=== PATIENT | female | born 1965 | race Caucasian/White ===

== ENCOUNTER → 2018-11-15 | Emergency (ER) | payer OTHER ==
[~2018-11-15] VITALS: Ht 157.5 cm; Wt 68.0 kg
[~2018-11-15] MED LIST: SOD CHLORIDE 0.9% 1,000 ML IV STA
[2018-11-15 12:43] VITALS: Ht 157.5 cm; Wt 68.0 kg
--- NOTE | 2018-11-15 12:46 | ERD ---
ER Documentation Chief Complaint Chief Complaint SYNCOPAL EPISODE @ WORK , HELD DOWN BY CO WORKER , NO FALL HPI The patient is a 53-year-old female, presenting to the ER because of acute syncopal episode at work. She did not fall because her coworkers were able to catch her, she felt much better at this time. She denies similar symptoms previously, denies tongue biting/fecal/urinary incontinence. She denies fever, chills, neck pain, chest pain, dyspnea, abdominal pain, vomiting or dysuria, diarrhea. She does not smoke nor drink, blood pressure at the scene was 94/61, she was treated with normal saline 250 mL IV by EMS with good response Past medical/surgical history: None ROS All systems reviewed and are negative except as per history of present illness. Medications Home Meds No Active Prescriptions or Reported Meds Allergies Allergies: Coded Allergies: No Known Allergy (Unverified , 11/15/18) Physical Exam Vitals Vital Signs Date Temp Pulse Resp B/P (MAP) Pulse Ox O2 O2 Flow FiO2 Time Delivery Rate 11/15/18 83 18 117/67 100 Room Air 16:00 (84) 11/15/18 85 16 128/72 100 Room Air 14:00 (90) 11/15/18 94 16 141/82 99 Room Air 13:25 (101) 11/15/18 98 16 133/87 100 Room Air 13:22 (102) 11/15/18 95 16 128/82 100 Room Air 13:20 (97) 11/15/18 98.4 78 18 124/76 99 12:43 (92) Physical Exam Const: No acute distress. Head: Atraumatic. Eyes: Normal Conjunctiva. ENT: Normal External Ears, Nose and Mouth. Neck: Full range of motion. No meningismus. Resp: Clear to auscultation bilaterally. Cardio: Regular rate and rhythm. Abd: Soft, non distended, normal bowel sounds, non tender. Skin: No petechiae or rashes. Back: No midline or flank tenderness. Ext: No cyanosis, or edema. Neur: Awake and alert. No focal deficit Psych: Normal Mood and Affect. Result Diagram: 11/15/18 1256 11/15/18 1256 Results 24 hrs Laboratory Tests Test 11/15/18 12:53 11/15/18 12:56 11/15/18 15:16 Bedside Glucose 124 mg/dL White Blood Count 13.8 10^3/ul Red Blood Count 4.52 10^6/ul Hemoglobin 13.2 g/dl Hematocrit 40.4 % Mean Corpuscular Volume 89.4 fl Mean Corpuscular Hemoglobin 29.2 pg Mean Corpuscular 32.7 g/dl Hemoglobin Concent Red Cell Distribution Width 12.5 % Platelet Count 307 10^3/UL Mean Platelet Volume 10.1 fl Immature Granulocytes % 0.700 % Neutrophils % 78.1 % Lymphocytes % 13.6 % Monocytes % 6.5 % Eosinophils % 0.7 % Basophils % 0.4 % Nucleated Red Blood Cells % 0.0 /100WBC Immature Granulocytes # 0.090 10^3/ul Neutrophils # 10.8 10^3/ul Lymphocytes # 1.9 10^3/ul Monocytes # 0.9 10^3/ul Eosinophils # 0.1 10^3/ul Basophils # 0.1 10^3/ul Nucleated Red Blood Cells # 0.0 10^3/ul Prothrombin Time 13.4 Sec Prothrombin Time Ratio 1.0 INR International Normalized Ratio 1.01 Activated Partial Thromboplast 23.8 Sec Time Sodium Level 142 mmol/L Potassium Level 4.3 mmol/L Chloride Level 109 mmol/L Carbon Dioxide Level 23 mmol/L Anion Gap 10 Blood Urea Nitrogen 11 mg/dl Creatinine 0.64 mg/dl Est Glomerular Filtrat Rate mL/min > 60 mL/min Glucose Level 120 mg/dl Calcium Level 9.1 mg/dl Troponin I < 0.012 ng/ml Bedside Urine pH (LAB) 7.0 Bedside Urine Protein (LAB) Negative Bedside Urine Glucose (UA) Negative Bedside Urine Ketones (LAB) Negative Bedside Urine Blood Negative Bedside Urine Nitrite (LAB) Negative Bedside Urine Leukocyte Esterase Negative (L Current Medications Medications Dose Sig/Kayla Start Time Status Last (Trade) Ordered Route PRN Stop Time Admin Dose Reason Admin Sodium 1,000 ml @ Q1H STAT 11/15/18 DC 11/15/18 Chloride 1,000 mls/hr IV 12:46 13:00 11/15/18 13:45 Procedures/MDM [address] [address] Radiology Main Line: [phone] DIAGNOSTIC IMAGING REPORT Patient: ELKIN HERNANDEZ : 1965 Age: 53 Sex: F MR #: [id number] [facility] #: [id number] DOS: 11/15/18 1246 Ordering MD: ALEXANDRA MARTINEZ MD Location: E/R Room/Bed: PROCEDURE: CT Brain without contrast. CLINICAL INDICATION: Syncope. TECHNIQUE: A CT of the brain without contrast was performed utilizing axial sections from the skull base through the vertex. One or more the following does reduction techniques were utilized: Automated exposure control, adjustment of the mA/ or kV according to patient's size, or use of iterative reconstruction technique. Total exam CTDIvol is 39.42 MGy and DLP is 554.95 mGy-cm. DICOM images are available. COMPARISON: None available. FINDINGS: The ventricles and sulci are age-appropriate. There is no intracranial hemorrhage, mass effect or midline shift. No abnormal intra-axial or extra- axial fluid collections are seen. The andrea/white matter differentiation is preserved. Partially empty sella turcica is noted. There are minimal foci of hypoattenuation in the white matter, which are nonspecific in etiology but likely reflect chronic small vessel ischemic changes. The visualized paranasal sinuses are essentially clear. IMPRESSION: 1. No acute intracranial hemorrhage, transcortical infarction or mass effect. 2. Minimal chronic small vessel ischemic changes. 3. Partially empty sella turcica. RPTAT: HH .Sherrie Fuentes MD, MD Date Time Electronically viewed and signed by .Sherrie Fuentes MD, MD on 11/15/2018 13:47 .N/ CC: ALEXANDRA MARTINEZ MD [phone] EKG: Read by emergency physician Rate/Rhythm: Normal Sinus Rhythm 93 beats per min QRS, ST, T-waves: No ST elevation, no T wave inversion, SA Impression: Abnormal EKG MEDICAL MAKING DECISION: The patient is a 53-year-old female, presenting with acute syncope of unclear etiology. She was treated with 1 L normal saline for clinical dehydration with good response. The differential diagnoses considered include but are not limited to arrhythmogenic right ventricular dysplasia, Brugada syndrome, left ventricular hypertrophy, pulmonary embolism, QT abnormality, [id number]. Departure Diagnosis: Primary Impression: Syncope Additional Impression: Leukocytosis Condition: Stable Comments I discussed the findings with the patient. I discussed the patient with the hospitalist Dr Byrd at 3 pm . who was made aware of the lab, the treatment, the patient condition. The patient is admitted to [facility] Disclaimer: Inadvertent spelling and grammatical errors are likely due to EHR/dictation software use and do not reflect on the overall quality of patient care. Also, please note that the electronic time recorded on this note does not necessarily reflect the actual time of the patient encounter. ALEXANDRA MARTINEZ MD Nov 15, 2018 12:46
[2018-11-15 16:00] VITALS: BP 117/67; PULSE 83; RESP 18
--- NOTE | 2018-11-15 17:05 | PDOCDIS ---
Discharge Instructions CONDITION [id number] Patient Condition: [id number] Good HOME CARE INSTRUCTIONS: [id number] Diet Instructions: [id number] Regular ACTIVITY: [id number] Activity Restrictions: [id number] No Restrictions FOLLOW UP/APPOINTMENTS Follow-up Plan FOLLOW UP WITH YOUR PRIMARY CARE PHYSICIAN IN 1-2 WEEKS UNRULY MEADE Nov 15, 2018 17:05
--- NOTE | 2018-11-15 17:05 | QN ---
Documentation Comment Patient is a 53-year-old female with no medical history who presents after a syncopal episode at work. Patient was feeling diaphoretic prior to the episode, patient syncopized but was caught by her coworker. Patient has been under a lot of stress at home lately, patient has no prior history of syncope or cardiac disease, workup in the ER is normal with CT head showing no acute findings, labs were normal with exception of leukocytosis which is likely reactive, UA was negative. In the ER patient's blood pressure and heart rate are within normal limits, patient denies chest pain and physical exam is benign. Patient prefers to be discharged and understands that she should follow-up with her PCP. Patient has no further complaints. UNRULY MEADE Nov 15, 2018 17:05
== END | disposition home or self-care (01) ==
LOC: E/R 12:34 → CANRESERV 17:59 → CANBEDREQ 20:36
DX: D72.829 Elevated white blood cell count, unspecified (principal)
CPT/HCPCS: 36415; 70450; 80048; 81003; 82962; 84484; 85025; 85610; 85730; 93005; J7030; Z7502